=== PATIENT | female | born 1990 | race Caucasian/White ===

== ENCOUNTER 2017-05-15 10:43 | Emergency (ER) | payer OTHER | END 2017-05-15 12:01 | disposition left against medical advice (07) | LOC: D.ER 10:43 | DX: M54.5 Low back pain (principal); B19.20 Unspecified viral hepatitis C without hepatic coma ==

== ENCOUNTER 2017-05-17 19:46 | Emergency (ER) | payer OTHER | END 2017-05-17 21:20 | disposition home or self-care (01) | LOC: D.ER 19:46 | DX: S39.012A Strain of muscle, fascia and tendon of lower back, initial encounter (principal); X58.XXXA Exposure to other specified factors, initial encounter; Y93.89 Activity, other specified; Y92.89 Other specified places as the place of occurrence of the external cause; B19.20 Unspecified viral hepatitis C without hepatic coma ==

== ENCOUNTER 2017-09-29 10:50 | Emergency (ER) | payer MEDICAID | END 2017-09-29 12:05 | disposition home or self-care (01) | LOC: D.ER 10:50 | DX: K02.9 Dental caries, unspecified (principal); K08.89 Other specified disorders of teeth and supporting structures; B19.20 Unspecified viral hepatitis C without hepatic coma; F17.200 Nicotine dependence, unspecified, uncomplicated ==

== ENCOUNTER 2017-11-23 10:45 | Emergency (ER) | payer OTHER ==
[~2017-11-23] VITALS: Ht 177.8 cm; Wt 89.1 kg
[2017-11-23 10:47] VITALS: BP 133/72; Ht 177.8 cm; Wt 89.1 kg
== END 2017-11-23 11:08 | disposition left against medical advice (07) ==
LOC: D.ER 10:45
DX: R10.2 Pelvic and perineal pain (principal)